=== PATIENT | male | born 2000 | race Caucasian/White ===

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

== ENCOUNTER → 2022-05-02 | Outpatient (CLI) | payer BC ==
--- NOTE | 2022-05-02 16:41 | XR ---
EXAMINATION TYPE: XR shoulder complete LT DATE OF EXAM: 05/02/2022 4:21 PM INDICATION: Patient age:Male; 21 years old; Reason for study: M25.512 PAIN IN LEFT SHOULDER; COMPARISON: None TECHNIQUE: The left shoulder was examined in AP, internally rotated and scapular Y projections. . FINDINGS: No evidence of acute osseous pathology, joint dislocation, or soft tissue swelling. The remaining por tions of the visualized chest are unremarkable. IMPRESSION: No acute osseous pathology.
== END | disposition home or self-care (01) ==
LOC: RADXRMAIN 16:10
PROVIDERS: ATTEND Family Medicine
DX: M25.512 Pain in left shoulder (principal)

== ENCOUNTER 2024-03-22 18:58 | Emergency (ER) | payer BC ==
[2024-03-22] MEDS ORDERED: FLUORESCEIN STRIPS 1 MG STRIP ONE (19:52)
[2024-03-22] MEDS ORDERED: PROPARACAINE 0.5% OPHTH DROPS 15 ML BTL ONE (19:52)
[2024-03-22] MEDS ORDERED: KETOROLAC 0.5% OPHTH DROPS 5 ML BTL ONE (20:55)
[2024-03-22] MEDS ORDERED: CIPROFLOXACIN 0.3% OPHTH SOLN 5 ML BTL ONE (20:55)
== END 2024-03-22 21:18 | disposition home or self-care (01) ==
LOC: EC 18:58
CPT/HCPCS: 99282

== ENCOUNTER 2024-07-12 12:43 | Emergency (ER) | payer BC ==
--- NOTE | 2024-07-12 12:52 | ED ---
General Adult HPI - General Source: patient Mode of arrival: ambulatory Limitations: no limitations <Carlos Hadley - Last Filed: 07/12/24 12:51> - General Source: patient, RN notes reviewed Mode of arrival: ambulatory Limitations: no limitations <Hollie Ch - Last Filed: 07/12/24 16:12> - General Chief complaint: Eye Problems Stated complaint: L Eye Problem Time Seen by Provider: 07/12/24 12:51 - History of Present Illness Initial comments: 23-year-old male presenting with chief complaint of piece of metal in the eye. Patient states that he did not notice it until 2 days ago when he was having some discharge from the eye. He also has watering. States that this has happened multiple times previously and he is desensitized to the sensation. He does not wear contact lenses (Carlos Hadley) This is a 23-year-old male who presents to the emergency department for a foreign body in the eye. 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 He noticed this in the left eye a couple of days ago when he was having redness and drainage from the eye. This has happened to him in the past. Denies any problems with his vision at this point and states that the pain is tolerable. Tetanus vaccine is up-to-date. (Hollie Ch) - Related Data Allergies Allergy/AdvReac Type Severity Reaction Status Date / Time diazepam [From Valium] Allergy Hallucinati Verified 07/12/24 12:55 ons Review of Systems ROS Other: All systems not noted in ROS Statement are negative. <Carlos Hadley - Last Filed: 07/12/24 12:51> ROS Other: All systems not noted in ROS Statement are negative. <Hollie Ch - Last Filed: 07/12/24 16:12> ROS Statement: Those systems with pertinent positive or pertinent negative responses have been documented in the HPI. General Exam <Carlos Hadley - Last Filed: 07/12/24 12:51> Limitations: no limitations General appearance: alert, in no apparent distress Head exam: Present: atraumatic, normocephalic, normal inspection Expanded Sclera/Conjunctival: Foreign Body: Left Visual acuity (R) = 20/: 25 Visual acuity (L) = 20/: 25 Respiratory exam: Present: normal lung sounds bilaterally. Absent: respiratory distress, wheezes, rales, rhonchi, stridor Cardiovascular Exam: Present: regular rate, normal rhythm, normal heart sounds. Absent: systolic murmur, diastolic murmur, rubs, gallop, clicks Neurological exam: Present: alert, oriented X3, CN II-XII intact Psychiatric exam: Present: normal affect, normal mood Skin exam: Present: warm, dry, intact, normal color. Absent: rash <Hollie Ch - Last Filed: 07/12/24 16:12> - General Exam Comments Initial Comments: Visual Physical Exam Vital signs reviewed General: Well-appearing, nontoxic, no acute distress. Head: Normocephalic, atraumatic Eyes: PERRLA, EOMI ENT: Airway patent Chest: Nonlabored breathing Skin: No visual rash, normal skin tone Neuro: Alert and oriented 3 Musculoskeletal: No gross abnormalities (Carlos Hadley) Course Vital Signs 07/12/24 07/12/24 12:52 14:25 Temperature 98 F Pulse Rate 77 70 Respiratory 20 18 Rate Blood Pressure 113/68 110/60 O2 Sat by Pulse 99 99 Oximetry Procedures - Forgein Body Removal Eye Site: Left Anesthetic Used: Proparacaine Eye Exam Technique: Jarvis Lamp Foreign Body Suspected: Metal Forgein Body Removal Technique: Needle Remaining Debris: No <Hollie Ch - Last Filed: 07/12/24 16:12> Medical Decision Making <Carlos Hadley - Last Filed: 07/12/24 12:51> <Hollie Ch - Last Filed: 07/12/24 16:12> - Medical Decision Making I performed the quick note portion of this visit, electronically signed Carlos Hadley PA-C (Carlos Hadley) This is a 23-year-old male who presents to the emergency department for eye pain. Was pt. sent in by a medical professional or institution? @ -No Did you speak to anyone other than the patient for history? @ -No Did you review nursing and triage notes? @ -Yes, and I agree, it is accurate with regards to the patient's symptoms. Were old charts reviewed? @ -No Differential Diagnosis? @ -Differential Eye Pain: Conjuncitivitis (viral, bacterial, allergic), corneal abrasion, foreign body, iritis, uveitis, keratitis, acute angle closure glaucoma, this is not meant to be an all-inclusive list. EKG interpreted by me (3pts min.)? @ -Not obtained X-rays interpreted by me (1pt min.)? @ -Not obtained CT interpreted by me (1pt min.)? @ -Not obtained U/S interpreted by me (1pt. min.)? @ -Not obtained What testing was considered but not performed? (CT, X-rays, U/S, labs)? Why? @ -None What meds were considered but not given? Why? @ -None Did you discuss the management of the patient with other professionals? @ -No Did you reconcile home meds? @ -No Was smoking cessation discussed for >3mins.? @ -No Was critical care preformed (if so, how long)? @ -No Were there social determinants of health that impacted care today? How? (Homelessness, low income, unemployed, alcoholism, drug addiction, transportation, low edu. Level, literacy, decrease access to med. care, half-way, rehab)? @ -No Was there de-escalation of care discussed even if they declined? (Discuss DNR or withdrawal of care, Hospice)? @ -No What co-morbidities impacted this encounter? (DM, HTN, Smoking, COPD, CAD, Cancer, CVA, Hep., AIDS, mental health diagnosis, sleep apnea, morbid obesity)? @ -None Was patient admitted / discharged? @ -Discharged. Physical examination demonstrates a foreign body in the left eye. We first attempted to use a Q-tip, however this was not effective. 30- gauge needle was then used and the piece of metal was easily removed from the eye. Fluorescein staining performed afterwards and he did have a small corneal abrasion. Tetanus vaccine is up-to-date. Patient sent home with ciprofloxacin eyedrops for infectious prophylaxis to be used over the next 5 days. He was also sent home with ketorolac eyedrops for discomfort. Advised he follow-up with ophthalmology. Patient discharged home in stable condition. Case discussed with ED attending Dr. Monroy. Return precautions reviewed in depth, the patient is instructed to return to the emergency department with any new, worsening, or concerning symptoms. Patient verbalized understanding. Undiagnosed new problem with uncertain prognosis? @ -None Drug Therapy requiring intensive monitoring for toxicity (Heparin, Nitro, Insulin, Cardizem)? @ -None Were any procedures done? @ -Foreign body removal from left eye Diagnosis/symptom? @ -Foreign body in left eye Acute, or Chronic, or Acute on Chronic? @ -Acute Uncomplicated (without systemic symptoms) or Complicated (systemic symptoms)? @ -Uncomplicated Side effects of treatment? @ -None Exacerbation, Progression, or Severe Exacerbation] @ -Not applicable Poses a threat to life or bodily function? @ -No (Hollie Ch) Disposition <Carlos Hadley - Last Filed: 07/12/24 12:51> Is patient prescribed a controlled substance at d/c from ED?: No Time of Disposition: 13:40 <Hollie Ch - Last Filed: 07/12/24 16:12> Clinical Impression: Foreign body of left eye Disposition: HOME SELF-CARE Instructions (If sedation given, give patient instructions): Eye Foreign Body (ED) Additional Instructions: Return to the emergency department with any new, worsening, or concerning symptoms. Apply the ciprofloxacin eyedrops as 2 drops to the left eye every 6 hours for 5 days. You can apply the ketorolac eyedrops as 1 drop every 6 hours to help with pain. Referrals: Lokesh Chin MD [Primary Care Provider] - 1-2 days
[2024-07-12 12:54] VITALS: TEMP 98
[2024-07-12] MEDS: FLUORESCEIN STRIPS 1 MG STRIP LEFT EYE ONE (13:14)
[2024-07-12] MEDS: PROPARACAINE 0.5% OPHTH DROPS 15 ML BTL BOTH EYES STA (13:14)
[2024-07-12] MEDS: KETOROLAC 0.5% OPHTH DROPS 5 ML BTL LEFT EYE STA (14:22)
[2024-07-12] MEDS: CIPROFLOXACIN 0.3% OPHTH SOLN 5 ML BTL LEFT EYE STA (14:23)
[2024-07-12 14:26] VITALS: BP 110/60; PULSE 70; RESP 18
== END 2024-07-12 14:26 | disposition home or self-care (01) ==
LOC: EC 12:43
DX: T15.92XA Foreign body on external eye, part unspecified, left eye, initial encounter (principal); Z88.8 Allergy status to other drugs, medicaments and biological substances; W44.9XXA Unspecified foreign body entering into or through a natural orifice, initial encounter
CPT/HCPCS: 65205; 99283

== ENCOUNTER 2025-03-09 16:22 | Emergency (ER) | payer BC ==
[2025-03-09 16:30] VITALS: TEMP 98.5
--- NOTE | 2025-03-09 17:20 | ED ---
Dizziness HPI - General Chief Complaint: Dizziness Stated Complaint: Chest pain, vomiting Time Seen by Provider: 03/09/25 17:17 Source: patient, RN notes reviewed, old records reviewed Mode of arrival: ambulatory Limitations: no limitations - History of Present Illness Initial Comments: This is a 24-year-old male to ER for evaluation of dizziness dizziness with some chest pain cough and congestion dizziness that persisted at work with nausea symptoms are persistent went to an urgent care and sent to ER for evaluation regarding EKG changes. Patient has persistent symptoms here in the ER but no acute complaints or distress MD Complaint: dizziness -: days(s) Timing: sudden onset Description: lightheadedness, nausea History of Same: No History of Trauma: No Severity: mild Improves With: nothing Worsens With: nothing Associated Symptoms: chest pain, shortness of breath - Related Data Home Medications Medication Instructions Recorded Confirmed Amoxic-Pot Clav 875-125Mg 1 tab PO BID-W/MEALS 03/09/25 03/09/25 [Augmentin 875-125] Ciprofloxacin-Dexameth [Ciprodex 2 drops BOTH EARS DAILY 03/09/25 03/09/25 Otic Susp] Citalopram Hydrobromide [CeleXA] 10 mg PO DAILY@1200 03/09/25 03/09/25 Allergies Allergy/AdvReac Type Severity Reaction Status Date / Time diazepam [From Valium] Allergy Hallucinati Verified 03/09/25 18:16 ons Review of Systems ROS Statement: Those systems with pertinent positive or pertinent negative responses have been documented in the HPI. ROS Other: All systems not noted in ROS Statement are negative. Past Medical History Past Medical History: No Reported History History of Any Multi-Drug Resistant Organisms: None Reported Past Surgical History: Ear Surgery Past Psychological History: Anxiety, Depression Smoking Status: Current every day smoker Past Alcohol Use History: None Reported Past Drug Use History: Marijuana General Exam Limitations: no limitations General appearance: alert, in no apparent distress Head exam: Present: atraumatic, normocephalic, normal inspection Eye exam: Present: normal appearance, PERRL, EOMI. Absent: scleral icterus, conjunctival injection, periorbital swelling ENT exam: Present: normal exam, mucous membranes moist Neck exam: Present: normal inspection. Absent: tenderness, meningismus, lymphadenopathy Respiratory exam: Present: normal lung sounds bilaterally. Absent: respiratory distress, wheezes, rales, rhonchi, stridor Cardiovascular Exam: Present: regular rate, normal rhythm, normal heart sounds. Absent: systolic murmur, diastolic murmur, rubs, gallop, clicks GI/Abdominal exam: Present: soft, normal bowel sounds. Absent: distended, tenderness, guarding, rebound, rigid Extremities exam: Present: normal inspection, full ROM, normal capillary refill. Absent: tenderness, pedal edema, joint swelling, calf tenderness Back exam: Present: normal inspection Neurological exam: Present: alert, oriented X3, CN II-XII intact Psychiatric exam: Present: normal affect, normal mood Skin exam: Present: warm, dry, intact, normal color. Absent: rash Course Vital Signs 03/09/25 03/09/25 16:25 19:15 Temperature 98.5 F Pulse Rate 98 100 Respiratory 20 18 Rate Blood Pressure 105/58 111/67 O2 Sat by Pulse 98 99 Oximetry - Reevaluation(s) Reevaluation #1: 03/09/25 17:44 Medical records reviewed Reevaluation #2: 03/09/25 19:05 Patient symptoms improved Reevaluation #3: 03/09/25 19:05 Patient informed of results questions answered Reevaluation #4: Was pt. sent in by a medical professional or institution (, PA, WINE MANAGER, urgent care, hospital, or usp...) When possible be specific @ -no Did you speak to anyone other than the patient for history (EMS, parent, family, police, friend...)? What history was obtained from this source @ -no Did you review nursing and triage notes (agree or disagree)? Why? @ -agree Are old charts reviewed (outside hosp., previous admission, EMS record, old EKG, old radiological studies, urgent care reports/EKG's, usp records)? Report findings @ -yes Differential Diagnosis (chest pain, altered mental status, abdominal pain women, abdominal pain men, vaginal bleeding, weakness, fever, dyspnea, syncope, headache, dizziness, GI bleed, back pain, seizure, CVA, palpatations, mental health, musculoskeletal)? @ -prior EKG interpreted by me (3pts min.). @ -yes X-rays interpreted by me (1pt min.). @ -yes negative for acute disease CT interpreted by me (1pt min.). @ -no U/S interpreted by me (1pt. min.). @ -no What testing was considered but not performed or refused? (CT, X-rays, U/S, labs)? Why? @ -none What meds were considered but not given or refused? Why? @ -none Did you discuss the management of the patient with other professionals (professionals i.e. Dr., PA, WINE MANAGER, lab, RT, psych nurse, oncology social worker, embedded firmware developer, teacher, chief program officer, case preparer and liner)? Give summary @ -no Was smoking cessation discussed for >3mins.? @ -no Was critical care preformed (if so, how long)? @ -no Were there social determinants of health that impacted care today? How? (Homelessness, low income, unemployed, alcoholism, drug addiction, transportation, low edu. Level, literacy, decrease access to med. care, [facility], rehab)? @ -none Was there de-escalation of care discussed even if they declined (Discuss DNR or withdrawal of care, Hospice)? DNR status @ -no What co-morbidities impacted this encounter? (DM, HTN, Smoking, COPD, CAD, Cancer, CVA, ARF, Chemo, Hep., AIDS, mental health diagnosis, sleep apnea, morbid obesity)? @ -none Was patient admitted / discharged? Hospital course, mention meds given and route, prescriptions, significant lab abnormalities, going to OR and other pertinent info. @ - 24 male to ER for evaluation of dizziness cough congestion and chest pain. No acute cause of symptoms found here in the ER patient can be discharged home nausea vomiting improved Discharge Undiagnosed new problem with uncertain prognosis? @ -no Drug Therapy requiring intensive monitoring for toxicity (Heparin, Nitro, Insulin, Cardizem)? @ -no Were any procedures done? @ -no Diagnosis/symptom? @ -Nausea vomiting Acute, or Chronic, or Acute on Chronic? @ -Acute Uncomplicated (without systemic symptoms) or Complicated (systemic symptoms)? @ -Complicated Side effects of treatment? @ -no Exacerbation, Progression, or Severe Exacerbation? @ -exacerbation Poses a threat to life or bodily function? How? (Chest pain, [place], [place], pneumonia, PE, COPD, DKA, ARF, appy, cholecystitis, CVA, Diverticulitis, Homicidal, Suicidal, threat to staff... and all critical care pts) @ -no Reevaluation #5: Differential Chest Pain: Stable Angina, Unstable Angina, STEMI, NSTEMI Aortic Dissection, Pneumothorax, Musculoskeletal, Esophageal Spasm GERD, Cholecystitis, Pancreatitis, Zoster, this is not meant to be an all-inclusive list. Differential Dizziness: Benign paroxysmal positional Vertigo, Meniere's disease, otitis media, acoustic neuroma, vertebrobasilar insufficiency, cerebellar stroke, encephalitis, hypovolemic, arrhythmia, coronary artery syndrome, anemia, this is not meant to be an all-inclusive list EKG Findings - EKG Comments: EKG Findings:: EKG is sinus 91 [place] 138 QRS 90 QTc 379 - EKG Results: EKG: interpreted by [facility] Medical Decision Making - Medical Decision Making 24 male to ER for evaluation of dizziness cough congestion and chest pain. No acute cause of symptoms found here in the ER patient can be discharged home nausea vomiting improved - Lab Data Result diagrams: 03/09/25 17:15 03/09/25 17:15 Lab Results 03/09/25 03/09/25 03/09/25 Range/Units 17:13 17:13 17:13 WBC (4.50-10.00) 10*3/uL RBC (4.40-5.60) 10*6/uL Hgb (13.0-17.0) g/dL Hct (39.6-50.0) % MCV (80.0-97.0) fL MCH (27.0-32.0) pg MCHC (32.0-37.0) g/dL Plt Count (140-440) 10*3/uL MPV (9.5-12.2) fL Immature Gran % (Auto) % Neutrophils % % Lymphocytes % % Monocytes % % Eosinophils % % Basophils % % Immature Gran # (0.00-0.04) 10*3/uL Neutrophils # (1.80-7.70) 10*3/uL Lymphocytes # (0.90-5.00) 10*3/uL Monocytes # (0.20-1.00) 10*3/uL Eosinophils # (0.04-0.35) 10*3/uL Basophils # (0.00-0.10) 10*3/uL D-Dimer <0.17 (<0.60) mg/L FEU Sodium (137-145) mmol/L Potassium (3.5-5.1) mmol/L Chloride (98-107) mmol/L Carbon Dioxide (22-30) mmol/L Anion Gap mmol/L BUN (9-20) mg/dL Creatinine (0.66-1.25) mg/dL Est GFR (CKD-EPI)AfAm (>60 ml/min/1.73 sqM) Est GFR (CKD-EPI)NonAf (>60 ml/min/1.73 sqM) Glucose (74-99) mg/dL Calcium (8.4-10.2) mg/dL Phosphorus 3.6 (2.5-4.5) mg/dL Magnesium 2.0 (1.6-2.3) mg/dL Total Bilirubin (0.2-1.3) mg/dL AST (17-59) U/L ALT (4-49) U/L Alkaline Phosphatase (38-126) U/L Creatine Kinase 159 (55-170) U/L Troponin I <0.012 (0.000-0.034) ng/mL Total Protein (6.3-8.2) g/dL Albumin (3.5-5.0) g/dL 03/09/25 03/09/25 Range/Units 17:15 17:15 WBC 11.00 H (4.50-10.00) 10*3/uL RBC 4.87 (4.40-5.60) 10*6/uL Hgb 15.3 (13.0-17.0) g/dL Hct 44.6 (39.6-50.0) % MCV 91.6 (80.0-97.0) fL MCH 31.4 (27.0-32.0) pg MCHC 34.3 (32.0-37.0) g/dL Plt Count 250 (140-440) 10*3/uL MPV 10.8 (9.5-12.2) fL Immature Gran % (Auto) 0.2 % Neutrophils % 73.7 % Lymphocytes % 19.3 % Monocytes % 5.8 % Eosinophils % 0.5 % Basophils % 0.5 % Immature Gran # 0.02 (0.00-0.04) 10*3/uL Neutrophils # 8.12 H (1.80-7.70) 10*3/uL Lymphocytes # 2.12 (0.90-5.00) 10*3/uL Monocytes # 0.64 (0.20-1.00) 10*3/uL Eosinophils # 0.05 (0.04-0.35) 10*3/uL Basophils # 0.05 (0.00-0.10) 10*3/uL D-Dimer (<0.60) mg/L FEU Sodium 139 (137-145) mmol/L Potassium 3.6 (3.5-5.1) mmol/L Chloride 103 (98-107) mmol/L Carbon Dioxide 25 (22-30) mmol/L Anion Gap 11 mmol/L BUN 16 (9-20) mg/dL Creatinine 0.81 (0.66-1.25) mg/dL Est GFR (CKD-EPI)AfAm >90 (>60 ml/min/1.73 sqM) Est GFR (CKD-EPI)NonAf >90 (>60 ml/min/1.73 sqM) Glucose 151 H (74-99) mg/dL Calcium 9.5 (8.4-10.2) mg/dL Phosphorus (2.5-4.5) mg/dL Magnesium (1.6-2.3) mg/dL Total Bilirubin 0.5 (0.2-1.3) mg/dL AST 22 (17-59) U/L ALT 17 (4-49) U/L Alkaline Phosphatase 60 (38-126) U/L Creatine Kinase (55-170) U/L Troponin I (0.000-0.034) ng/mL Total Protein 7.2 (6.3-8.2) g/dL Albumin 4.7 (3.5-5.0) g/dL - EKG Data -: EKG Interpreted by [facility] - Radiology Data Radiology results: report reviewed (Chest x-ray is negative for acute disease), image reviewed Disposition Clinical Impression: Dizziness, Nausea & vomiting, Chest pain Disposition: HOME SELF-CARE Condition: Good Instructions (If sedation given, give patient instructions): Dizziness (ED) Is patient prescribed a controlled substance at d/c from ED?: No Referrals: Lokesh Chin MD [Primary Care Provider] - 1-2 days Time of Disposition: 19:00
[2025-03-09 17:36] LABS: Basophils # (A) 0.05 10*3/uL (0.00-0.10); Basophils % (A) 0.5 %; Eosinophils # (A) 0.05 10*3/uL (0.04-0.35); Eosinophils % (A) 0.5 %; HCT 44.6 % (39.6-50.0); HGB 15.3 g/dL (13.0-17.0); Lymphocytes # (A) 2.12 10*3/uL (0.90-5.00); Lymphocytes % (A) 19.3 %; MCH 31.4 pg (27.0-32.0); MCHC 34.3 g/dL (32.0-37.0); MCV 91.6 fL (80.0-97.0); Monocytes # (A) 0.64 10*3/uL (0.20-1.00); Monocytes % (A) 5.8 %; Neutrophils # (A) 8.12 10*3/uL (1.80-7.70); Neutrophils % (A) 73.7 %; Platelet Count 250 10*3/uL (140-440); RBC 4.87 10*6/uL (4.40-5.60); RDW 11.4 % (11.5-14.5); WBC 11.00 10*3/uL (4.50-10.00)
[2025-03-09 17:51] LABS: ALT 17 U/L (4-49); AST 22 U/L (17-59); African American GFR (CKD) >90 (>60 ml/min/1.73 sqM); Albumin 4.7 g/dL (3.5-5.0); Alkaline Phosphatase 60 U/L (38-126); Anion Gap 11 mmol/L; Blood Urea Nitrogen 16 mg/dL (9-20); Calcium 9.5 mg/dL (8.4-10.2); Carbon Dioxide 25 mmol/L (22-30); Chloride 103 mmol/L (98-107); Glucose 151 mg/dL (74-99); Non-African American GFR(CKD) >90 (>60 ml/min/1.73 sqM); Potassium 3.6 mmol/L (3.5-5.1); Sodium 139 mmol/L (137-145); Total Protein 7.2 g/dL (6.3-8.2)
--- NOTE | 2025-03-09 18:05 | XR ---
EXAMINATION TYPE: XR chest 2V DATE OF EXAM: 03/09/2025 6:00 PM COMPARISON: Chest radiographs from 06/24/2019 TECHNIQUE: XR chest 2V Frontal and lateral views of the chest. CLINICAL INDICATION:Male, 24 years old with history of cough; FINDINGS: Lungs/Pleura: There is no evidence of pleural effusion, focal consolidation, or pneumothorax. Pulmonary vascularity: Unremarkable. Heart/mediastinum: Cardiomediastinal silhouette is unremarkable. Musculoskeletal: No acute osseous pathology. IMPRESSION: No acute cardiopulmonary disease/process. [facility], , 03/09/2025 6:03 PM
[2025-03-09] MEDS: SODIUM CHLORIDE 0.9% 1,000 ML IV ONE (18:19)
[2025-03-09] MEDS: KETOROLAC 15 MG/ML 1 ML VIAL IVP STA (18:20)
[2025-03-09] MEDS: ONDANSETRON 4 MG/2 ML VIAL IVP STA (18:21)
[2025-03-09] MEDS ORDERED: ONDANSETRON 4 MG ODT STARTER PACK TAB BTL PO STA (18:21)
[2025-03-09 18:58] LABS: Creatine Kinase 159.0 U/L (55-170); Magnesium 2.0 mg/dL (1.6-2.3)
[2025-03-09 19:16] VITALS: BP 111/67; PULSE 100; RESP 18
== END 2025-03-09 19:20 | disposition home or self-care (01) ==
LOC: EC 16:22
DX: R42 Dizziness and giddiness (principal); R11.2 Nausea with vomiting, unspecified; R07.9 Chest pain, unspecified; F17.200 Nicotine dependence, unspecified, uncomplicated; Z88.8 Allergy status to other drugs, medicaments and biological substances
CPT/HCPCS: 36415; 71046; 80053; 82550; 83735; 84100; 84484; 85025; 85379; 93005; 96361; 96374; 96375; 99284